=== PATIENT | male | born 1995 | race Caucasian/White ===

== ENCOUNTER 2017-06-19 15:39 | Emergency (ER) | payer OTHER ==
[~2017-06-19] VITALS: Ht 182.9 cm; Wt 90.7 kg
[2017-06-19 15:44] VITALS: BP_SYST 123
--- NOTE | 2017-06-19 15:47 | NUR ---
Patient triaged and placed in waiting room. VSS and patient appears in no acute distress at this time. Accompanied by FATHER, awaiting available bed, and MD notified of need for MSE.
--- NOTE | 2017-06-19 16:41 | NUR ---
Patient to ER bed 8 to gown for evaluation. Side rails up. Report given to Philippe FREEMAN.
--- NOTE | 2017-06-19 16:45 | NUR ---
ZENAIDA DURAN at bedside examining patient.
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
[2017-06-19] MEDS ORDERED: BACITRACIN 1 GM OINT TP ONE (17:00)
[2017-06-19] MEDS ORDERED: DIPH-TET-PERTUS Vaccine 0.5 ML VIAL (ADACEL) IM ONE (17:00)
[2017-06-19] MEDS ORDERED: LIDOCAINE 1% 10 MG/ML, 20 ML MDV IJ ONE (17:00)
--- NOTE | 2017-06-19 17:00 | NUR ---
ERLINDA DURAN AT BEDSIDE FOR WOUND REPAIR.
--- NOTE | 2017-06-19 17:20 | NUR ---
PT TOLERATED WOUND REPAIR WELL.
[2017-06-19 17:45] VITALS: BP_SYST 123
--- NOTE | 2017-06-19 17:45 | NUR ---
Patient given written and verbal discharge instructions and verbalizes understanding. ER MD discussed with patient the results and treatment provided. Patient in stable condition. ID arm band removed. Rx of MOTRIN,BACITRICIN given. Patient educated on pain management and to follow up with PMD. Pain Scale 0. Opportunity for questions provided and answered.
== END 2017-06-19 17:45 | disposition home or self-care (01) ==
LOC: SED 15:39
DX: S01.21XA Laceration without foreign body of nose, initial encounter (principal); R03.0 Elevated blood-pressure reading, without diagnosis of hypertension; W21.03XA Struck by baseball, initial encounter; Y93.64 Activity, baseball; Y92.320 Baseball field as the place of occurrence of the external cause; Y99.8 Other external cause status
CPT/HCPCS: 12011; 90471; 90715; 99283; J2001